=== PATIENT | female | born 1985 | race Caucasian/White ===

== ENCOUNTER → 2024-08-28 | Outpatient (CLI) | payer BC, OTHER ==
[~2024-08-28] MED LIST: HYDACE5 PO; HYDMOR2 PO; KETO10 PO; LEVFLO500 PO; PROM25 PO; RXHYDACE PO; RXHYDMOR2 PO; RXPROM25 PO; RXPROM25S PR; TAMS.4ER PO
[2024-08-30 14:53] LABS: C. TRACHOMATIS BY TMA,THINPREP Negative (Negative); N. GONORRHOEAE BY TMA,THINPREP Negative (Negative); SPECIMEN SOURCE Cervical
[2024-09-08 16:05] LABS: HPV HIGH RISK BY TMA Not Detected; HPV SOURCE Vaginal
== END ==
LOC: LAB 09:35 → LAB SHORT 09:35
PROVIDERS: Family Medicine
DX: Z01.419 Encounter for gynecological examination (general) (routine) without abnormal findings (principal); Z11.3 Encounter for screening for infections with a predominantly sexual mode of transmission
CPT/HCPCS: 87491; 87591; 87624; G0123